=== PATIENT | male | born 1980 | race Hispanic/Latino ===

== ENCOUNTER 2016-08-12 09:04 | Emergency (ER) | payer MEDICAID, OTHER ==
[~2016-08-12] VITALS: Ht 175.3 cm; Wt 81.8 kg
[~2016-08-12 09:04] MED LIST: CYCL10TA9 PO; IBUP800T28 PO; METH-313 PO; NAPR500T PO; TRAM50TA2 PO
[2016-08-12 09:11] VITALS: BP 175/108; PULSE 109; RESP 29; O2SAT 100
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
[2016-08-12 09:29] LABS: BASOPHILS % (AUTO) 0.6 % (0-3); EOSINOPHILS % (AUTO) 1.6 % (0-5); MONOCYTES % (AUTO) 6.6 % (4-12); Mean Corpuscular Hemoglobin 29.7 pg (27.0-35.0); Mean Corpuscular Volume 85.3 fL (81-100); NEUTROPHILS % (AUTO) 74.8 % (40-74); Platelet Count 299 bil/L (150-400)
[2016-08-12] MEDS ORDERED: Ondansetron 2 mg/mL 2 mL Inj IVPUSH ONE (09:40)
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
[2016-08-12] MEDS ORDERED: Lidocaine-Epi-Tetracaine Solution 3 mL Syringe TOPICAL ONE (10:00)
[2016-08-12] MEDS: HYDROmorphone 0.5 mg/0.5 mL iSecure Syringe IVPUSH PRN ×3 (10:02→11:33)
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
[2016-08-12 10:57] VITALS: BP 146/94; PULSE 78; RESP 25; O2SAT 99
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
[2016-08-12] MEDS ORDERED: HYDROmorphone 1 mg/mL Inj IVPUSH PRN (12:00)
[2016-08-12] MEDS ORDERED: HYDROmorphone 1 mg/mL Inj IVPUSH ONE (12:00)
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
[2016-08-12 14:36] VITALS: BP 120/96; PULSE 92; RESP 16; O2SAT 99
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
[2016-08-12] MEDS ORDERED: oxyCODONE-Acetamin 5-325 mg Tablet PO ONE (16:00)
[2016-08-12] MEDS ORDERED: IBUP-1827 PO (16:33)
[2016-08-12] MEDS ORDERED: OXYC1TAB24 PO (16:33)
[2016-08-12] MEDS ORDERED: ONDA4TAB12 PO (16:34)
[2016-08-12 17:00] VITALS: BP 153/95; PULSE 101; RESP 18; O2SAT 98
[2016-08-20] MEDS ORDERED: OXYC1TAB24 PO (10:44)
[2016-08-20] MEDS ORDERED: ALBU8.5H2 INHALATION (10:44)
== END 2016-08-12 17:04 | disposition home or self-care (01) ==
LOC: SED 09:04
DX: S52.292A Other fracture of shaft of left ulna, initial encounter for closed fracture (principal); S62.621A Displaced fracture of middle phalanx of left index finger, initial encounter for closed fracture; S06.0X0A Concussion without loss of consciousness, initial encounter; S01.01XA Laceration without foreign body of scalp, initial encounter; F15.10 Other stimulant abuse, uncomplicated; Y08.02XA Assault by strike by baseball bat, initial encounter; Y93.89 Activity, other specified; Y99.8 Other external cause status; Y92.510 Bank as the place of occurrence of the external cause; F17.200 Nicotine dependence, unspecified, uncomplicated
CPT/HCPCS: 12004; 26725; 29105; 36415; 70450; 70551; 71010; 71260; 72125; 73030; 73090; 73130; 74177; 80053; 85014; 85018; 85025; 86850; 96374; 96375; 96376; 99285; 99291; 99292; G0390; G0480; J1170; J2405; Q9967

== ENCOUNTER 2016-08-14 14:11 | Emergency (ER) | payer MEDICAID, OTHER ==
[~2016-08-14] VITALS: Ht 175.3 cm; Wt 81.8 kg
[~2016-08-14 14:11] MED LIST changes: +IBUP-1827 PO; +ONDA4TAB12 PO; +OXYC1TAB24 PO
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
[2016-08-14 14:15] VITALS: BP 147/104; PULSE 71; RESP 15; O2SAT 100
--- NOTE | 2016-08-14 14:39 | DRSVH ---
PROCEDURE: CT BRAIN WITHOUT CONTRAST ([id number]) INDICATIONS: decreased Level consciousnes TECHNIQUE: Noncontrast 4.5 mm thick angled axial sections acquired from the foramen magnum to the vertex, with c oronal reformats. COMPARISON: [facility], MR, MR BRAIN WO CON, 08/12/2016, 15:15. [facility], CT, CT BRAIN WO CON, 08/12/2016, 13:33. [facility], CT, CT BRAIN WO CON, 08/12/2016, 9:21. FINDINGS: Image quality: Excellent. CSF spaces: Basal cisterns are patent. No extra-axial fluid collections. Ventricles are normal in size and shape. Brain: No midline shift. No intracranial masses or hemorrhage. Ratliff-white matter interface is norm al. Skull and face: Calvarium and visualized facial bones are intact, without suspicious lesions. Fronta l skin edward are noted. Frontal and right parietal scalp hematomas are noted. Sinuses: Visualized sinuses and mastoids are clear. IMPRESSION: No acute intracranial disease process. Dictated by: Jacqueline Luciano MD, PhD on 08/14/2016 at 14:34 Approved by: Jacqueline Luciano MD, PhD on 08/14/2016 at 14:37
[2016-08-14 14:53] LABS: EOSINOPHILS % (AUTO) 2.1 % (0-5); MONOCYTES % (AUTO) 9.3 % (4-12); Mean Corpuscular Hemoglobin 29.8 pg (27.0-35.0); Mean Corpuscular Volume 88.5 fL (81-100); NEUTROPHILS % (AUTO) 59.4 % (40-74); Platelet Count 241 bil/L (150-400)
[2016-08-14 15:06] VITALS: BP 128/79; PULSE 66; RESP 15; O2SAT 100
[2016-08-14 16:00] VITALS: BP 123/91; PULSE 92; RESP 10; O2SAT 99
[2016-08-14 16:09] VITALS: BP 123/91; PULSE 92; RESP 10; O2SAT 99
[2016-08-20] MEDS ORDERED: OXYC1TAB24 PO (10:44)
[2016-08-20] MEDS ORDERED: ALBU8.5H2 INHALATION (10:44)
== END 2016-08-14 16:09 | disposition home or self-care (01) ==
LOC: EDUNIT# 14:11 → SED 14:11 → EDBD 14:11 → SED 16:09
DX: R51 Headache (principal); S06.0X0A Concussion without loss of consciousness, initial encounter; F07.81 Postconcussional syndrome; Y08.02XA Assault by strike by baseball bat, initial encounter; Y93.89 Activity, other specified; Y99.8 Other external cause status; Y92.9 Unspecified place or not applicable; F15.10 Other stimulant abuse, uncomplicated; F17.200 Nicotine dependence, unspecified, uncomplicated; F11.10 Opioid abuse, uncomplicated
CPT/HCPCS: 29105; 36415; 70450; 80053; 85025; 94799; 99284; G0463; Q4018

== ENCOUNTER 2016-08-22 10:35 | Day surgery (SDC) | payer OTHER ==
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
[~2016-08-22] VITALS: Ht 175.3 cm; Wt 86.3 kg
[2016-08-22] VITALS (20 sets, daily range): BP systolic 139–162; BP diastolic 82–111; PULSE 16–102; RESP 13–21; O2SAT 92–98
[~2016-08-22 10:35] MED LIST changes: +ALBU8.5H2 INHALATION; -CYCL10TA9 PO; -IBUP-1827 PO; -IBUP800T28 PO; -METH-313 PO; -NAPR500T PO; -ONDA4TAB12 PO; -TRAM50TA2 PO
[2016-08-22] MEDS ORDERED: Propofol 10,000 mCg/mL 20 mL Inj ONE (10:36)
[2016-08-22] MEDS ORDERED: Lidocaine 0.5% 50 mL Inj ONE (10:36)
[2016-08-22] MEDS ORDERED: Dexamethasone 4 mg/mL Inj ONE (10:36)
[2016-08-22] MEDS ORDERED: MetoCLOpramide 5 mg/mL 2 mL Inj ONE (10:36)
[2016-08-22] MEDS ORDERED: Ondansetron 2 mg/mL 2 mL Inj ONE (10:36)
[2016-08-22] MEDS ORDERED: fentaNYL-PF 50 mCg/mL 2 mL Inj ONE (10:36)
[2016-08-22] MEDS ORDERED: Lactated Ringer's 1,000 ML IV ONE ×2 (11:11→16:30)
[2016-08-22] MEDS ORDERED: Albuterol 2.5 mg/3 mL Inhalation Solution NEB ONE (11:38)
[2016-08-22] MEDS: CeFAZolin Inj 2 GM in IV Premix 1 EACH IV SCH ×2 (13:45→18:09)
[2016-08-22] MEDS ORDERED: MetoCLOpramide 5 mg/mL 2 mL Inj IVPUSH PRN (14:05)
[2016-08-22] MEDS ORDERED: EPHEDrine Sulfate 50 mg/mL Inj IVPUSH PRN (14:05)
[2016-08-22] MEDS ORDERED: Lactated Ringer's 1,000 ML IV SCH (14:05)
[2016-08-22] MEDS ORDERED: Lactated Ringer's 500 ML IV PRN (14:05)
[2016-08-22] MEDS ORDERED: Ondansetron 2 mg/mL 2 mL Inj IVPUSH PRN (14:05)
[2016-08-22] MEDS ORDERED: Dexamethasone 4 mg/mL Inj IVPUSH PRN (14:05)
[2016-08-22] MEDS ORDERED: Phenylephrine 10,000 mCg/mL Inj IVPUSH PRN (14:05)
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
[2016-08-22] MEDS ORDERED: Bupivacaine-MPF 0.5% 30 mL Inj INFILTRATE ONE (14:14)
--- NOTE | 2016-08-22 17:40 | PCM.ANEP1 ---
Post Anesthesia Phase 1 PACU Phase 1 Assessment Date of Service: Aug 22, 2016 ([id number]) Vital Signs Vital Signs Date Time Temp Pulse Resp B/P Pulse Ox O2 Delivery O2 Flow Rate FiO2 08/22/16 11:27 36.9 16 16 144/97 97 Room Air Anesthetic Administered: GA Level of Alertness: Sleepy, easy to arouse BAZZI's with Equal Strength: Yes Pain: No Nausea or Vomiting: No Oxygen Delivery: Room Air Lungs: Clear to Auscultation Dermatome Level: Full Sensation Colton Millan MD Aug 22, 2016 17:40
--- NOTE | 2016-08-22 17:47 | PCM.ANEP2 ---
Post Anesthesia Evaluation ASA/CMS Post Anesthesia VS in Patient's Normal Range?: Yes Resp Stable; Airway Patent?: Yes CV Function & Hydration Stable: Yes Mental Status Recovered?: Yes Pain control Satisfactory?: Yes N/V Control Satisfactory?: Yes Colton Millan MD Aug 22, 2016 17:47
[2016-08-22] MEDS ORDERED: oxyCODONE-Acetamin 5-325 mg Tablet PO PRN (18:15)
[2016-08-22] MEDS: fentaNYL-PF 50 mCg/mL 2 mL Inj IVPUSH PRN ×2 (18:15→18:53)
[2016-08-22] MEDS: HYDROmorphone 1 mg/mL Inj IVPUSH PRN ×2 (18:26→18:37)
--- NOTE | 2016-08-22 19:04 | DRSVH ---
PROCEDURE: X-RAY LEFT FOREARM, TWO VIEWS ([id number]) INDICATIONS: POST OP FOREARM SURGERY TECHNIQUE: 2 views of the forearm were acquired. COMPARISON: [facility], CR, XR FOREARM 2VW LT, 08/14/2016, 12:48. FINDINGS: Bones: Since the previous presurgical x-rays there has been anatomic reduction of the midshaft slight ly comminuted ulnar fracture. This has been accomplished with a plate and 6 screws multiple skin stap les over the surgical site. No abnormality is appreciated radiographically Soft tissues: No suspicious soft tissue calcifications or masses. IMPRESSION: Anatomic reduction of mid shaft ulnar fracture with plate and screws. No abnormality is a ppreciated on these images. Dictated by: Alfredo Pablo M.D. on 08/22/2016 at 19:03 Approved by: Alfredo Pablo M.D. on 08/22/2016 at 19:04
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
== END 2016-08-22 23:59 | disposition home or self-care (01) ==
LOC: SAS 10:35
PROVIDERS: ATTEND Orthopaedic Surgery
DX: S52.232A Displaced oblique fracture of shaft of left ulna, initial encounter for closed fracture (principal); S62.611A Displaced fracture of proximal phalanx of left index finger, initial encounter for closed fracture; Y04.2XXA Assault by strike against or bumped into by another person, initial encounter; W21.11XA Struck by baseball bat, initial encounter; Y93.9 Activity, unspecified; Y92.9 Unspecified place or not applicable; J45.909 Unspecified asthma, uncomplicated; M54.16 Radiculopathy, lumbar region; Z87.891 Personal history of nicotine dependence; Z79.51 Long term (current) use of inhaled steroids
CPT/HCPCS: 25545; 26727; 73090; C1713; J0690; J1100; J1170; J2250; J2405; J2765; J3010; J7120; J7613

== ENCOUNTER 2016-08-25 22:19 | Emergency (ER) | payer OTHER ==
[~2016-08-25] VITALS: Ht 175.3 cm; Wt 84.5 kg
[2016-08-25 22:25] VITALS: BP 148/91; PULSE 86; RESP 18; O2SAT 100
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
[2016-08-25] MEDS ORDERED: cefTRIAXone Inj 2,000 MG in Dextrose 5% Minibag Plus 50 ML IV ONE (23:05)
[2016-08-25] MEDS ORDERED: 0.9% Sodium Chloride 100 ML ONE (23:39)
[2016-08-26 00:21] VITALS: BP 145/88; PULSE 70; RESP 16; O2SAT 97
--- NOTE | 2016-08-26 09:56 | DRSVH ---
PROCEDURE: X-RAY LEFT FOREARM, TWO VIEWS ([id number]) INDICATIONS: post op pain TECHNIQUE: 2 views of the forearm were acquired. COMPARISON: [facility], CR, XR FOREARM 2VW LT, 08/22/2016, 18:14. FINDINGS: Bones: Stable appearance of comminuted fracture involving the midshaft of the ulna. Stable positionin g of fixation plate and associated fixation screws. Multiple surgical edward redemonstrated. Soft tissues: No suspicious soft tissue calcifications or masses. IMPRESSION: Stable bony alignment and postsurgical changes. Dictated by: Gustabo RITTER Interpreted: Ammy Matson MD on 08/26/2016 at 9:54 Transcribed by: LEONCIO on 08/26/2016 at 9:55 Approved by: Ammy Matson M.D. on 08/26/2016 at 16:27
== END 2016-08-26 00:22 | disposition home or self-care (01) ==
LOC: SED 22:19
DX: G89.18 Other acute postprocedural pain (principal); S52.202A Unspecified fracture of shaft of left ulna, initial encounter for closed fracture; X58.XXXA Exposure to other specified factors, initial encounter; Y92.9 Unspecified place or not applicable; Y93.9 Activity, unspecified; Y99.9 Unspecified external cause status; J45.909 Unspecified asthma, uncomplicated; M54.9 Dorsalgia, unspecified; G89.29 Other chronic pain; Z46.89 Encounter for fitting and adjustment of other specified devices; Z87.828 Personal history of other (healed) physical injury and trauma; Z87.891 Personal history of nicotine dependence
CPT/HCPCS: 29125; 73090; 96365; 99284; J0696